=== PATIENT | male | born 1990 | race Caucasian/White ===

== ENCOUNTER 2020-12-12 09:01 | Emergency (ER) | payer OTHER, SELFPAY ==
--- NOTE | 2020-12-13 13:21 | RAD ---
XR Pelvis AP STANDARD History: Foreign object Comparison: None. Findings: No radiopaque foreign object is appreciated. Can't deformities both femoral head/neck junct ions. Obturator rings are intact. Impression: No radiopaque foreign object appreciated.
== END 2020-12-12 10:23 ==
LOC: ERS 09:01
DX: T18.5XXA Foreign body in anus and rectum, initial encounter (principal); F17.210 Nicotine dependence, cigarettes, uncomplicated
CPT/HCPCS: 72170

== ENCOUNTER 2022-09-18 11:00 | Inpatient (IN) | payer SELFPAY ==
[2022-09-18] MEDS ORDERED: Ondansetron PF 4 MG/2 ML Vial ONE (11:01)
[2022-09-18] MEDS ORDERED: Midazolam HCl 5 mg/ml Vial ONE (11:06)
[2022-09-18] MEDS ORDERED: Lorazepam 2 MG/ML VIAL ONE (11:58)
[2022-09-18 12:04] LABS: #Lymphocytes 1.1 thou/uL (1.20-3.40); #Monocytes 1.5 thou/uL (0.11-0.59); #Neutrophils 11.1 thou/uL (1.40-6.50); %Basophils 0.1 % (0.0-1.0); %Eosinophils 0.1 % (0.0-10.0); %Lymphocytes 8.1 % (21.0-51.0); %Monocytes 11.2 % (0.0-10.0); %Neutrophils 80.5 % (42.0-75.0); Hemoglobin 16.3 g/dL (14.0-18.0); Mean Corpuscular HGB CONC 32.6 g/dL (32.0-36.0); Mean Corpuscular Volume 98.3 fL (78.0-98.0); Mean Platelet Volume 7.4 fL (7.4-10.4); Platelet Count 277 thou/uL (130-400); RBC Distribution Width 12.2 % (11.5-14.5); White Blood Cell (WBC) Count 13.7 thou/uL (4.8-10.8)
[2022-09-18 12:19] LABS: Acetaminophen Less than 10.0 mcg/mL (10.0-30.0); Alcohol Less than 10 mg/dL (Less than 10); CK (CPK) 1660 U/L (30-200); Salicylate Less than 8.0 mg/dL (15.0-30.0)
[2022-09-18 12:20] LABS: ALT (SGPT) 17 U/L (8-55); AST (SGOT) 57 U/L (5-34); Albumin 4.3 g/dL (3.5-5.0); Alkaline Phosphatase 73 U/L (40-110); Anion Gap 17 mmol/L (10-20); BUN (Urea Nitrogen) 21 mg/dL (8.9-20.6); Bilirubin, Total 0.9 mg/dL (0.2-1.2); Calc. Creatinine Clearance 0 mL/min (70-130); Carbon Dioxide 22 mmol/L (22-29); Chloride 110 mmol/L (98-107); Estimated GFR 65; Globulin 3.1 g/dL (2.4-3.5); Glucose 99 mg/dL (70-105); Potassium 3.8 mmol/L (3.5-5.1); Protein, Total 7.4 g/dL (6.0-8.3); Sodium 145 mmol/L (136-145)
[2022-09-18 12:54] LABS: CKMB 13.3 ng/mL (0-6.6)
[2022-09-18 13:02] LABS: Amphetamine Detected (NotDetected); Barbiturates Screen Not Detected (NotDetected); Benzodiazepine Screen Not Detected (NotDetected); Cocaine Metabolite Screen Not Detected (NotDetected); Methadone Not Detected (NotDetected); Methamphetamine Detected (NotDetected); Opiate Screen Not Detected (NotDetected); Oxycodone Screen Not Detected (NotDetected); Phencyclidine (PCP) Not Detected (NotDetected); THC/Cannabinoid Screen Detected (NotDetected); Tricyclic Screen Not Detected (NotDetected)
[2022-09-18 13:03] LABS: Bilirubin 1+ (Negative); Blood, Urine 1+ (Negative); Calcium Oxalate Crystals Rare HPF (None Seen); Clarity Turbid (Clear); Glucose, Urine (Dipstick) Normal (Negative); Ketone, Urine Trace mg/dL (Negative); Leukocyte 250 Leu/uL (Negative); Nitrite Negative (Negative); Protein, Urine (Dipstick) 200 mg/dL (Neg-Trace); Squamous Epithelial 0-3 HPF (0-3); WBC/HPF Greater than 50 HPF (0-3); pH, Urine 7.5 (5.0-9.0)
[2022-09-18 13:13] LABS: Bacteria/HPF 1+ HPF (None Seen); Sperm/HPF 4+ HPF (None Seen)
[2022-09-18] MEDS ORDERED: cefTRIAXone\\ROCEPHIN 2 GM VIAL ONE (14:18)
[2022-09-18] MEDS ORDERED: Bisacodyl 5 MG TAB PO PRN (15:10)
[2022-09-18] MEDS ORDERED: Senokot S 8.6-50 MG TAB PO PRN (15:10)
[2022-09-18] MEDS ORDERED: Ondansetron PF 4 MG/2 ML Vial IVP PRN (15:10)
[2022-09-18] MEDS ORDERED: Acetaminophen 650 MG Suppository PR PRN (15:10)
[2022-09-18] MEDS ORDERED: Calcium Carbonate 500 MG ChewTAB PO PRN (15:10)
[2022-09-18] MEDS ORDERED: Acetaminophen 325 MG TAB PO PRN (15:10)
[2022-09-18] MEDS ORDERED: Electrolyte Replacement Protocol 1 EACH FS SCH (15:15)
[2022-09-18] MEDS ORDERED: Lorazepam 2 MG/ML VIAL SLOW IVP PRN (15:15)
[2022-09-18] MEDS ORDERED: hydrALAZINE 20 MG/ML VIAL SLOW IVP PRN (15:20)
[2022-09-18] MEDS ORDERED: Folic Acid 1 MG TAB PO SCH (16:15)
[2022-09-18] MEDS ORDERED: Multivit, Therapeutic 1 TAB PO SCH (16:15)
[2022-09-18] MEDS ORDERED: Folic Acid 1 MG TAB ONE (16:20)
[2022-09-18] MEDS: Sodium Chloride 0.9% 1,000 ML IV SCH ×2 (16:35→23:17)
[2022-09-18] MEDS: Thiamine HCl 200 MG/2 ML VIAL SLOW IVP SCH (16:43)
[2022-09-18 18:48] VITALS: BMI 24.1
[2022-09-18] MEDS ORDERED: Diazepam 10 MG/2 ML SYRINGE IVP PRN (19:25)
[2022-09-18] MEDS ORDERED: DOBUTamine 500 mg/250 ml 250 ML ONE (19:33)
[2022-09-18] MEDS: Famotidine/PF 20 mg/2ml Vial SLOW IVP SCH (19:54)
[2022-09-18 21:31] LABS: Chlam.trachomatis by PCR,Urine Not Detected (NotDetected)
[2022-09-18] MEDS: Diazepam 10 MG/2 ML SYRINGE IVP PRN (23:17)
[2022-09-19 04:13] LABS: #Eosinphils 0.1 thou/uL (0.0-0.7); %Basophils 0.3 % (0.0-1.0); %Eosinophils 0.7 % (0.0-10.0); %Lymphocytes 37.5 % (21.0-51.0); %Neutrophils 49.5 % (42.0-75.0); Hemoglobin 14.5 g/dL (14.0-18.0); Mean Corpuscular HGB CONC 32.7 g/dL (32.0-36.0); Mean Corpuscular Hemoglobin 32.5 pg (27.0-31.0); Mean Corpuscular Volume 99.4 fl (78.0-98.0); Mean Platelet Volume 7.6 fL (7.4-10.4); Platelet Count 184 thou/uL (130-400); RBC Distribution Width 12.4 % (11.5-14.5); Red Blood Cell (RBC) Count 4.47 mill/uL (4.70-6.10); White Blood Cell (WBC) Count 8.1 thou/uL (4.8-10.8)
[2022-09-19] MEDS: Diazepam 10 MG/2 ML SYRINGE IVP PRN (04:21)
[2022-09-19 04:45] LABS: ALT (SGPT) 17 U/L (8-55); AST (SGOT) 109 U/L (5-34); Albumin 3.6 g/dL (3.5-5.0); Alkaline Phosphatase 60 U/L (40-110); Anion Gap 13 mmol/L (10-20); BUN (Urea Nitrogen) 17 mg/dL (8.9-20.6); Bilirubin, Total 1.2 mg/dL (0.2-1.2); Calc. Creatinine Clearance 152 mL/min (70-130); Calcium 8.4 mg/dL (7.8-10.44); Carbon Dioxide 21 mmol/L (22-29); Chloride 110 mmol/L (98-107); Estimated GFR 116; Globulin 2.7 g/dL (2.4-3.5); Glucose 74 mg/dL (70-105); Potassium 3.7 mmol/L (3.5-5.1); Protein, Total 6.3 g/dL (6.0-8.3); Sodium 140 mmol/L (136-145)
[2022-09-19 04:58] LABS: CK (CPK) 4735 U/L (30-200)
[2022-09-19] MEDS ORDERED: Magnesium 2 GM/50 ML(in water) 2 GM in Premix Bag 1 BAG IVPB SCH (08:00)
[2022-09-19] MEDS: Sodium Chloride 0.9% 1,000 ML IV SCH (08:58)
[2022-09-19] MEDS: Multivit, Therapeutic 1 TAB PO SCH (09:00)
[2022-09-19] MEDS ORDERED: FLU VACC QS2022-23(6MOS UP)/PF 60 MCG/0.5 ML SYRINGE IM ONE (09:00)
[2022-09-19] MEDS: Famotidine/PF 20 mg/2ml Vial SLOW IVP SCH ×2 (09:00→20:33)
[2022-09-19] MEDS: Folic Acid 1 MG TAB PO SCH (09:00)
[2022-09-19] MEDS: Lactated Ringer's 1,000 ML IV SCH ×3 (10:56→20:33)
[2022-09-19] MEDS ORDERED: Lorazepam 2 MG/ML VIAL SLOW IVP PRN (12:25)
[2022-09-19] MEDS: Thiamine HCl 200 MG/2 ML VIAL SLOW IVP SCH (15:46)
[2022-09-19] MEDS: cefTRIAXone\\ROCEPHIN 1 GM in Sodium Chloride 0.9% 100 ML IVPB SCH (15:46)
[2022-09-20] MEDS: Lorazepam 1 MG TAB PO PRN ×2 (00:22→14:33)
[2022-09-20] MEDS: Lactated Ringer's 1,000 ML IV SCH ×2 (03:53→11:35)
[2022-09-20 06:41] LABS: #Basophils 0.1 thou/uL (0.0-0.2); #Eosinphils 0.1 thou/uL (0.0-0.7); #Lymphocytes 2.3 thou/uL (1.20-3.40); #Monocytes 0.7 thou/uL (0.11-0.59); #Neutrophils 3.8 thou/uL (1.40-6.50); %Basophils 1.3 % (0.0-1.0); %Lymphocytes 33.1 % (21.0-51.0); %Monocytes 9.4 % (0.0-10.0); %Neutrophils 54.2 % (42.0-75.0); Hemoglobin 14.9 g/dL (14.0-18.0); Mean Corpuscular Hemoglobin 32.7 pg (27.0-31.0); Mean Corpuscular Volume 99.1 fl (78.0-98.0); Mean Platelet Volume 7.6 fL (7.4-10.4); Platelet Count 190 thou/uL (130-400); RBC Distribution Width 11.9 % (11.5-14.5); Red Blood Cell (RBC) Count 4.56 mill/uL (4.70-6.10); White Blood Cell (WBC) Count 6.9 thou/uL (4.8-10.8)
[2022-09-20 07:16] LABS: ALT (SGPT) 18 U/L (8-55); AST (SGOT) 109 U/L (5-34); Albumin 3.5 g/dL (3.5-5.0); Alkaline Phosphatase 58 U/L (40-110); Anion Gap 13 mmol/L (10-20); BUN (Urea Nitrogen) 6 mg/dL (8.9-20.6); CK (CPK) 2741 U/L (30-200); Calc. Creatinine Clearance 165 mL/min (70-130); Calcium 8.3 mg/dL (7.8-10.44); Carbon Dioxide 26 mmol/L (22-29); Chloride 105 mmol/L (98-107); Estimated GFR 119; Globulin 2.6 g/dL (2.4-3.5); Glucose 84 mg/dL (70-105); Magnesium 1.9 mg/dL (1.6-2.6); Phosphorus 3.2 mg/dL (2.3-4.7); Potassium 3.6 mmol/L (3.5-5.1); Protein, Total 6.1 g/dL (6.0-8.3); Sodium 140 mmol/L (136-145)
[2022-09-20] MEDS ORDERED: Magnesium 2 GM/50 ML(in water) 2 GM in Premix Bag 1 BAG IVPB SCH (08:00)
[2022-09-20] MEDS: Multivit, Therapeutic 1 TAB PO SCH (08:17)
[2022-09-20] MEDS: Folic Acid 1 MG TAB PO SCH (08:17)
[2022-09-20] MEDS: Famotidine/PF 20 mg/2ml Vial SLOW IVP SCH (08:17)
[2022-09-20 12:11] VITALS: BP 119/68; TEMP 97.6
[2022-09-20] MEDS: cefTRIAXone\\ROCEPHIN 1 GM in Sodium Chloride 0.9% 100 ML IVPB SCH (15:44)
[2022-09-20] MEDS: Thiamine HCl 200 MG/2 ML VIAL SLOW IVP SCH (15:44)
[2022-09-21] MEDS ORDERED: Thiamine 100 MG TAB PO SCH (09:00)
== END 2022-09-20 15:53 | disposition left against medical advice (07) | DRG 557 ==
LOC: ERS 11:00 → SUATTDRO 11:00 → ERHOLD 15:20 → CCU 18:24 → IMCU/EMU 09-19 07:09 → T4-B 09-19 20:20
PROVIDERS: ADMIT Hospitalist; ATTEND Hospitalist
DX: M62.82 Rhabdomyolysis (principal); G92.8 Other toxic encephalopathy; F15.121 Other stimulant abuse with intoxication delirium; N17.9 Acute kidney failure, unspecified; N39.0 Urinary tract infection, site not specified; I24.8 Other forms of acute ischemic heart disease; F20.0 Paranoid schizophrenia; F12.121 Cannabis abuse with intoxication delirium; Z20.822 Contact with and (suspected) exposure to COVID-19; E86.0 Dehydration; Z53.29 Procedure and treatment not carried out because of patient's decision for other reasons
CPT/HCPCS: 36415; 70450; 71045; 80053; 80306; 80307; 81003; 81015; 82550; 82553; 83735; 84100; 84443; 84484; 85025; 87491; 87591; 93005; J0696; J2060; J2250; J2405; J3360; J3411; J3475; J3490; J7050; J7120; S0028; U0003; U0005

== ENCOUNTER 2022-10-10 09:14 | Observation (INO) | payer SELFPAY ==
[2022-10-10 09:46] LABS: #Basophils 0.1 thou/uL (0.0-0.2); #Lymphocytes 1.7 thou/uL (1.20-3.40); #Monocytes 0.9 thou/uL (0.11-0.59); #Neutrophils 6.8 thou/uL (1.40-6.50); %Basophils 0.8 % (0.0-1.0); %Eosinophils 0.2 % (0.0-10.0); %Lymphocytes 18.3 % (21.0-51.0); %Monocytes 9.1 % (0.0-10.0); %Neutrophils 71.7 % (42.0-75.0); Mean Corpuscular HGB CONC 33.7 g/dL (32.0-36.0); Mean Corpuscular Hemoglobin 32.6 pg (27.0-31.0); Mean Corpuscular Volume 96.8 fl (78.0-98.0); Mean Platelet Volume 8.1 fL (7.4-10.4); Platelet Count 283 10x3/uL (130-400); RBC Distribution Width 11.9 % (11.5-14.5); White Blood Cell (WBC) Count 9.5 10x3/uL (4.8-10.8)
[2022-10-10] MEDS ORDERED: Dextrose 50% Abboject 50 ML SYRINGE ONE (09:53)
[2022-10-10 10:04] LABS: INR-International Normal Ratio 0.9; PTT 28.2 sec (22.9-36.1)
[2022-10-10 10:07] LABS: ALT (SGPT) 25 U/L (8-55); AST (SGOT) 119 U/L (5-34); Acetaminophen Less than 10.0 mcg/mL (10.0-30.0); Albumin 5.1 g/dL (3.5-5.0); Alcohol Less than 10 mg/dL (Less than 10); Alkaline Phosphatase 69 U/L (40-110); Anion Gap 25 mmol/L (10-20); BUN (Urea Nitrogen) 22 mg/dL (8.9-20.6); Bilirubin, Total 2.2 mg/dL (0.2-1.2); CK (CPK) 3556 U/L (30-200); Calc. Creatinine Clearance 0 mL/min (70-130); Carbon Dioxide 17 mmol/L (22-29); Chloride 98 mmol/L (98-107); Estimated GFR 73; Globulin 3.8 g/dL (2.4-3.5); Glucose 78 mg/dL (70-105); Lipase 41 U/L (8-78); Potassium 4.1 mmol/L (3.5-5.1); Protein, Total 8.9 g/dL (6.0-8.3); Salicylate Less than 8.0 mg/dL (15.0-30.0); Sodium 136 mmol/L (136-145)
[2022-10-10] MEDS ORDERED: Cefepime 2 GM VIAL ONE (10:47)
[2022-10-10] MEDS ORDERED: Boostrix 0.5 ML (Tdap) VIAL (>/=7 yrs of age) ONE (10:47)
[2022-10-10] MEDS ORDERED: Sodium Chloride 0.9% 100 ML ONE (10:47)
[2022-10-10] MEDS ORDERED: Vancomycin 1.5 GRAM/300 ML BAG 1.5 GM in Premix Bag 1 BAG IVPB SCH (11:00)
[2022-10-10 11:24] LABS: Bacteria/HPF None Seen HPF (None Seen); Bilirubin Negative (Negative); Blood, Urine Negative (Negative); Clarity Clear (Clear); Glucose, Urine (Dipstick) 50 mg/dL (Negative); Ketone, Urine Greater than 150 mg/dL (Negative); Leukocyte 250 Leu/uL (Negative); Nitrite Negative (Negative); Protein, Urine (Dipstick) 30 mg/dL (Neg-Trace); RBC/HPF 0-3 HPF (0-3); Specific Gravity, Urine 1.021 (1.002-1.036); Squamous Epithelial 0-3 HPF (0-3); Urobilinogen Normal mg/dL (Less than 2); WBC/HPF Greater than 50 HPF (0-3)
[2022-10-10 11:28] LABS: Amphetamine Detected (NotDetected); Barbiturates Screen Not Detected (NotDetected); Benzodiazepine Screen Not Detected (NotDetected); Cocaine Metabolite Screen Not Detected (NotDetected); Methadone Not Detected (NotDetected); Methamphetamine Detected (NotDetected); Opiate Screen Not Detected (NotDetected); Oxycodone Screen Not Detected (NotDetected); Phencyclidine (PCP) Not Detected (NotDetected); THC/Cannabinoid Screen Detected (NotDetected); Tricyclic Screen Not Detected (NotDetected)
[2022-10-10 12:41] LABS: Lactic Acid 1.6 mmol/L (0.5-2.2)
[2022-10-10] MEDS ORDERED: Ziprasidone 20 MG VIAL ONE (13:04)
[2022-10-10] MEDS ORDERED: Water For Inject, Bacteriostat 30 ML ONE (13:05)
[2022-10-10] MEDS ORDERED: Lactated Ringer's 1,000 ML IV SCH (13:15)
[2022-10-10] MEDS ORDERED: Lorazepam 1 MG TAB PO PRN (13:15)
[2022-10-10] MEDS ORDERED: Lorazepam 2 MG/ML VIAL IM PRN (13:15)
[2022-10-10] MEDS ORDERED: Electrolyte Replacement Protocol 1 EACH FS SCH (13:15)
[2022-10-10] MEDS ORDERED: Ondansetron ODT 4 MG TAB PO PRN (13:15)
[2022-10-10] MEDS ORDERED: Acetaminophen 325 MG TAB PO PRN (13:18)
[2022-10-10] MEDS ORDERED: Ziprasidone 20 MG VIAL IM SCH (13:45)
[2022-10-10] MEDS ORDERED: Thiamine HCl 200 MG/2 ML VIAL SLOW IVP SCH (14:00)
[2022-10-10] MEDS ORDERED: Lorazepam 1 MG TAB PO SCH (14:00)
[2022-10-10] MEDS ORDERED: Vancomycin 1 GM in Premix Bag 1 BAG IVPB SCH (21:00)
[2022-10-11] MEDS ORDERED: Multivit, Therapeutic 1 TAB PO SCH (09:00)
[2022-10-11] MEDS ORDERED: Folic Acid 1 MG TAB PO SCH (09:00)
[2022-10-11] MEDS ORDERED: Lorazepam 1 MG TAB PO PRN (13:16)
[2022-10-12] MEDS ORDERED: Lorazepam 1 MG TAB PO PRN (13:16)
[2022-10-12] MEDS ORDERED: Lorazepam 0.5 MG TAB PO SCH (14:00)
[2022-10-13] MEDS ORDERED: Lorazepam 0.5 MG TAB PO PRN (13:16)
[2022-10-13] MEDS ORDERED: Thiamine 100 MG TAB PO SCH (14:00)
== END 2022-10-10 13:39 | disposition left against medical advice (07) ==
LOC: ERS 09:14 → ERHOLD 11:34
PROVIDERS: ADMIT Student in an Organized Health Care Education/Training Program; ATTEND Student in an Organized Health Care Education/Training Program
DX: N17.9 Acute kidney failure, unspecified (principal); F15.10 Other stimulant abuse, uncomplicated; M62.82 Rhabdomyolysis; E86.0 Dehydration; F20.0 Paranoid schizophrenia; L03.113 Cellulitis of right upper limb; F12.10 Cannabis abuse, uncomplicated; F17.210 Nicotine dependence, cigarettes, uncomplicated; Z53.29 Procedure and treatment not carried out because of patient's decision for other reasons
CPT/HCPCS: 36415; 36416; 70450; 71045; 80053; 80306; 80307; 81003; 81015; 82550; 83605; 83690; 84443; 84484; 85025; 85610; 85730; 87040; 87086; 90715; 93005; 94760; G0378; J0692; J3370; J3486; J3490; J7999

== ENCOUNTER 2022-11-05 23:42 | Emergency (ER) | payer SELFPAY ==
[2022-11-06 00:07] LABS: #Basophils 0.1 thou/uL (0.0-0.2); #Lymphocytes 4.1 thou/uL (1.20-3.40); #Monocytes 1.5 thou/uL (0.11-0.59); #Neutrophils 6.4 thou/uL (1.40-6.50); %Basophils 0.5 % (0.0-1.0); %Eosinophils 0.4 % (0.0-10.0); %Lymphocytes 34.1 % (21.0-51.0); %Monocytes 11.9 % (0.0-10.0); %Neutrophils 53.1 % (42.0-75.0); Hemoglobin 17.6 g/dL (14.0-18.0); Mean Corpuscular HGB CONC 34.3 g/dL (32.0-36.0); Mean Corpuscular Hemoglobin 32.6 pg (27.0-31.0); Mean Corpuscular Volume 95.2 fl (78.0-98.0); Mean Platelet Volume 7.4 fL (7.4-10.4); Platelet Count 307 10x3/uL (130-400); RBC Distribution Width 11.9 % (11.5-14.5); Red Blood Cell (RBC) Count 5.38 mill/uL (4.70-6.10); White Blood Cell (WBC) Count 12.1 10x3/uL (4.8-10.8)
[2022-11-06 00:27] LABS: ALT (SGPT) 15 U/L (8-55); AST (SGOT) 53 U/L (5-34); Albumin 4.8 g/dL (3.5-5.0); Alkaline Phosphatase 63 U/L (40-110); Anion Gap 17 mmol/L (10-20); BUN (Urea Nitrogen) 17 mg/dL (8.9-20.6); Bilirubin, Total 2.2 mg/dL (0.2-1.2); Calc. Creatinine Clearance 0 mL/min (70-130); Calcium 9.9 mg/dL (7.8-10.44); Carbon Dioxide 21 mmol/L (22-29); Chloride 107 mmol/L (98-107); Estimated GFR 83; Globulin 3.2 g/dL (2.4-3.5); Glucose 91 mg/dL (70-105); Magnesium 2.2 mg/dL (1.6-2.6); Potassium 4.1 mmol/L (3.5-5.1); Sodium 141 mmol/L (136-145)
[2022-11-06 00:32] LABS: CKMB 6.2 ng/mL (0-6.6)
[2022-11-06 02:48] LABS: Amphetamine Detected (NotDetected); Barbiturates Screen Not Detected (NotDetected); Benzodiazepine Screen Not Detected (NotDetected); Cocaine Metabolite Screen Not Detected (NotDetected); Methadone Not Detected (NotDetected); Methamphetamine Detected (NotDetected); Opiate Screen Not Detected (NotDetected); Oxycodone Screen Not Detected (NotDetected); Phencyclidine (PCP) Not Detected (NotDetected); THC/Cannabinoid Screen Detected (NotDetected); Tricyclic Screen Not Detected (NotDetected)
== END 2022-11-06 05:44 | disposition home or self-care (01) ==
LOC: ERS 23:42
DX: F15.90 Other stimulant use, unspecified, uncomplicated (principal); R74.8 Abnormal levels of other serum enzymes; F17.210 Nicotine dependence, cigarettes, uncomplicated
CPT/HCPCS: 36415; 80053; 80306; 82550; 82553; 83735; 85025; 93005

== ENCOUNTER 2022-11-08 08:44 | Emergency (ER) | payer SELFPAY ==
[2022-11-08 09:38] LABS: #Basophils 0.1 thou/uL (0.0-0.2); #Eosinphils 0.1 thou/uL (0.0-0.7); #Lymphocytes 1.9 thou/uL (1.20-3.40); #Monocytes 0.4 thou/uL (0.11-0.59); %Basophils 1.2 % (0.0-1.0); %Eosinophils 1.8 % (0.0-10.0); %Lymphocytes 34.9 % (21.0-51.0); %Monocytes 7.5 % (0.0-10.0); %Neutrophils 54.6 % (42.0-75.0); Hemoglobin 15.9 g/dL (14.0-18.0); Mean Corpuscular HGB CONC 33.7 g/dL (32.0-36.0); Mean Corpuscular Hemoglobin 32.5 pg (27.0-31.0); Mean Corpuscular Volume 96.5 fl (78.0-98.0); Mean Platelet Volume 7.1 fL (7.4-10.4); Platelet Count 250 10x3/uL (130-400); RBC Distribution Width 11.7 % (11.5-14.5); Red Blood Cell (RBC) Count 4.89 mill/uL (4.70-6.10); White Blood Cell (WBC) Count 5.5 10x3/uL (4.8-10.8)
[2022-11-08 09:58] LABS: Acetaminophen Less than 10.0 mcg/mL (10.0-30.0); Alcohol Less than 10 mg/dL (Less than 10); Salicylate Less than 8.0 mg/dL (15.0-30.0)
[2022-11-08 10:01] LABS: ALT (SGPT) 14 U/L (8-55); AST (SGOT) 50 U/L (5-34); Albumin 4.2 g/dL (3.5-5.0); Alkaline Phosphatase 55 U/L (40-110); Anion Gap 12 mmol/L (10-20); BUN (Urea Nitrogen) 8 mg/dL (8.9-20.6); Bilirubin, Total 1.1 mg/dL (0.2-1.2); Calc. Creatinine Clearance 0 mL/min (70-130); Calcium 8.7 mg/dL (7.8-10.44); Carbon Dioxide 24 mmol/L (22-29); Chloride 104 mmol/L (98-107); Estimated GFR 113; Globulin 2.8 g/dL (2.4-3.5); Glucose 101 mg/dL (70-105); Magnesium 2.1 mg/dL (1.6-2.6); Potassium 3.6 mmol/L (3.5-5.1); Sodium 136 mmol/L (136-145)
[2022-11-08 12:40] LABS: Bilirubin Negative (Negative); Blood, Urine Negative (Negative); Clarity Clear (Clear); Glucose, Urine (Dipstick) Normal (Negative); Ketone, Urine Negative (Negative); Leukocyte Negative Leu/uL (Negative); Nitrite Negative (Negative); Protein, Urine (Dipstick) Negative (Neg-Trace); Specific Gravity, Urine 1.012 (1.002-1.036); Urobilinogen Normal mg/dL (Less than 2)
[2022-11-08 12:50] LABS: Amphetamine Detected (NotDetected); Barbiturates Screen Not Detected (NotDetected); Benzodiazepine Screen Not Detected (NotDetected); Cocaine Metabolite Screen Not Detected (NotDetected); Methadone Not Detected (NotDetected); Methamphetamine Detected (NotDetected); Opiate Screen Not Detected (NotDetected); Oxycodone Screen Not Detected (NotDetected); Phencyclidine (PCP) Not Detected (NotDetected); THC/Cannabinoid Screen Detected (NotDetected); Tricyclic Screen Not Detected (NotDetected)
== END 2022-11-08 16:42 | disposition home or self-care (01) ==
LOC: ERS 08:44
DX: F15.129 Other stimulant abuse with intoxication, unspecified (principal); F17.210 Nicotine dependence, cigarettes, uncomplicated
CPT/HCPCS: 36415; 80053; 80306; 80307; 81003; 83735; 84443; 85025; 93005

== ENCOUNTER 2022-12-17 10:57 | Observation (INO) | payer OTHER ==
[2022-12-17] MEDS ORDERED: Oxymetazoline HCl 0.05% (30 ML BOT) ONE (12:50)
[2022-12-17] MEDS ORDERED: Lidocaine 2% 6 ML SYR ONE (12:50)
[2022-12-17] MEDS ORDERED: Ondansetron ODT 4 MG TAB PO PRN (13:03)
[2022-12-17] MEDS ORDERED: Ondansetron PF 4 MG/2 ML Vial IVP PRN (13:03)
[2022-12-17] MEDS ORDERED: Dextrose 50% Abboject 50 ML SYRINGE SLOW IVP PRN (13:03)
[2022-12-17] MEDS ORDERED: Morphine 2 MG/ML VIAL SLOW IVP PRN (13:03)
[2022-12-17] MEDS ORDERED: Dextrose 5% in Water 1,000 ML IV PRN (13:03)
[2022-12-17] MEDS ORDERED: traMADol HCl 50 MG TAB PO PRN (13:06)
[2022-12-17] MEDS ORDERED: Lactated Ringer's 1,000 ML IV SCH (13:15)
[2022-12-17 13:31] LABS: HIV (1/2) Antibody/Antigen Non-Reactive (NonReactive); HIV 1/2 INDEX 0.13 S/CO (<1.00); Hep C IgG Ab Non-Reactive (NonReactive); Hep C Index 0.04 S/CO (0-0.79)
[2022-12-17] MEDS ORDERED: CEFAZOLIN 1 GM VIAL SLOW IVP ONE (13:32)
[2022-12-17] MEDS ORDERED: CEFAZOLIN 2 GM VIAL ONE (13:38)
[2022-12-17 13:39] LABS: HBSAB Concentration 20.37 mIU/mL; Hep B Surf AB Reactive (NonReactive)
[2022-12-17] MEDS ORDERED: Sodium Chloride 0.9% 100 ML ONE (13:39)
[2022-12-17] MEDS ORDERED: Chlorhexidine Gluconate 15 ML UDCUP SSP ONE (13:40)
[2022-12-17] MEDS ORDERED: Lidocaine 1% (PF) 30 ML VIAL ONE (13:40)
[2022-12-17] MEDS ORDERED: EPINEPHrine 1 MG/ML AMP ONE (13:40)
[2022-12-17] MEDS ORDERED: CEFAZOLIN 2 GM in Sodium Chloride 0.9% 100 ML IVPB SCH (13:45)
[2022-12-17] MEDS ORDERED: HYDROmorphone 2 MG/ML VIAL ONE (13:55)
[2022-12-17] MEDS ORDERED: Dexmedetomidine 200 MCG/2 ML VIAL ONE (13:55)
[2022-12-17] MEDS ORDERED: PROPOFOL 200 MG/20 ML VIAL ONE (14:03)
[2022-12-17] MEDS ORDERED: Dexamethasone 20 MG/5 ML VIAL ONE (14:03)
[2022-12-17] MEDS ORDERED: Ondansetron PF 4 MG/2 ML Vial ONE (14:03)
[2022-12-17] MEDS ORDERED: NEOSTIGMINE 3 MG/3 ML SYR 3 MG/3 ML SYRINGE ONE (14:03)
[2022-12-17] MEDS ORDERED: Glycopyrrolate 0.2 MG/ML 5 ML SYRINGE ONE (14:03)
[2022-12-17] MEDS ORDERED: Lidocaine 1% PF 5 ML VIAL ONE (14:03)
[2022-12-17] MEDS ORDERED: Rocuronium Bromide 10 MG/ML (10ML VIAL) ONE (14:03)
[2022-12-17] MEDS ORDERED: Bacitracin Zinc Ointment 30 gm TUBE ONE (14:45)
[2022-12-17] MEDS ORDERED: Promethazine HCl 25 MG/ML VIAL IM PRN (15:14)
[2022-12-17] MEDS ORDERED: Meperidine HCl/PF 25 MG/ML VIAL SLOW IVP PRN (15:14)
[2022-12-17] MEDS ORDERED: Ondansetron HCl/PF 4 MG/2 ML Vial IVP PRN (15:14)
[2022-12-17] MEDS ORDERED: HYDROmorphone 2 MG/ML VIAL SLOW IVP PRN (15:14)
[2022-12-17] MEDS ORDERED: PACU-Morphine 4MG/ML VIAL SLOW IVP PRN (15:14)
[2022-12-17] MEDS ORDERED: Fentanyl 100 MCG/2 ML VIAL ONE (15:37)
[2022-12-17] MEDS ORDERED: OLANZapine 10 MG VIAL IM SCH (16:15)
[2022-12-17] MEDS: traMADol HCl 50 MG TAB PO SCH (17:34)
[2022-12-17] MEDS: Acetaminophen 500 MG TAB PO SCH ×2 (17:35→23:43)
[2022-12-17] MEDS: Gabapentin 300 MG CAP PO SCH ×2 (17:36→23:42)
[2022-12-17] MEDS: Ibuprofen 200 MG TAB PO SCH ×2 (17:36→23:43)
[2022-12-17 18:07] LABS: #Monocytes 0.2 thou/uL (0.11-0.59); #Neutrophils 9.4 thou/uL (1.40-6.50); %Basophils 0.2 % (0.0-1.0); %Eosinophils 0.2 % (0.0-10.0); %Monocytes 2.1 % (0.0-10.0); %Neutrophils 88.5 % (42.0-75.0); Hemoglobin 16.5 g/dL (14.0-18.0); Mean Corpuscular HGB CONC 33.8 g/dL (32.0-36.0); Mean Corpuscular Hemoglobin 32.7 pg (27.0-31.0); Mean Corpuscular Volume 96.6 fl (78.0-98.0); Mean Platelet Volume 7.6 fL (7.4-10.4); Platelet Count 259 10x3/uL (130-400); RBC Distribution Width 12.1 % (11.5-14.5); Red Blood Cell (RBC) Count 5.05 mill/uL (4.70-6.10); White Blood Cell (WBC) Count 10.6 10x3/uL (4.8-10.8)
[2022-12-17 18:29] LABS: ALT (SGPT) 8 U/L (8-55); AST (SGOT) 29 U/L (5-34); Albumin 4.2 g/dL (3.5-5.0); Alkaline Phosphatase 61 U/L (40-110); Anion Gap 15 mmol/L (10-20); BUN (Urea Nitrogen) 12 mg/dL (8.9-20.6); Bilirubin, Total 0.8 mg/dL (0.2-1.2); CK (CPK) 225 U/L (30-200); Calc. Creatinine Clearance 0 mL/min (70-130); Carbon Dioxide 24 mmol/L (22-29); Chloride 105 mmol/L (98-107); Estimated GFR 113; Globulin 2.8 g/dL (2.4-3.5); Glucose 106 mg/dL (70-105); Potassium 4.5 mmol/L (3.5-5.1); Sodium 139 mmol/L (136-145)
[2022-12-17] MEDS: Famotidine 20 MG TAB PO SCH (23:42)
[2022-12-18] MEDS: traMADol HCl 50 MG TAB PO SCH ×3 (01:14→10:50)
[2022-12-18] MEDS: Acetaminophen 500 MG TAB PO SCH ×2 (06:32→10:49)
[2022-12-18] MEDS: Ibuprofen 200 MG TAB PO SCH ×3 (06:33→15:17)
[2022-12-18] MEDS ORDERED: TETANUS, DIPHTHERIA TOX,ADULT (TDVAX) 0.5 ML VIAL IM ONE (09:00)
[2022-12-18] MEDS: Gabapentin 300 MG CAP PO SCH ×2 (10:46→15:16)
[2022-12-18] MEDS: Famotidine 20 MG TAB PO SCH (10:46)
[2022-12-18 11:49] VITALS: TEMP 97.7
[2022-12-18 16:12] VITALS: BP 118/69
[2022-12-18] MEDS ORDERED: Chlorhexidine Gluconate 15 ML UDCUP SSP SCH (21:00)
[2022-12-18] MEDS ORDERED: Bacitracin 1 PK TOP SCH (21:00)
[2022-12-18] MEDS ORDERED: Amoxicillin/Potassium Clav 875 MG TAB PO SCH (21:00)
== END 2022-12-18 16:45 ==
LOC: ERS 10:57 → SURG B 13:10 → SDC 13:10 → SURG B 17:15 → EEVIPCON 17:15
PROVIDERS: ADMIT Dentist Oral and Maxillofacial Surgery; ATTEND Dentist Oral and Maxillofacial Surgery
PROC: 0HQ1XZZ Repair Face Skin, External Approach (ICD-10-PCS; principal; 2022-12-17)
PROC: 0NBR0ZZ Excision of Maxilla, Open Approach (ICD-10-PCS; 2022-12-17)
PROC: 0CDWXZ1 Extraction of Upper Tooth, Multiple, External Approach (ICD-10-PCS; 2022-12-17)
DX: S02.42XB Fracture of alveolus of maxilla, initial encounter for open fracture (principal); S02.5XXA Fracture of tooth (traumatic), initial encounter for closed fracture; S01.82XA Laceration with foreign body of other part of head, initial encounter; G89.11 Acute pain due to trauma; F15.10 Other stimulant abuse, uncomplicated; F17.200 Nicotine dependence, unspecified, uncomplicated; F20.0 Paranoid schizophrenia; W22.09XA Striking against other stationary object, initial encounter; Y92.240 Courthouse as the place of occurrence of the external cause
CPT/HCPCS: 36415; 70450; 70486; 80053; 82550; 85025; 90714; 96372; 96374; G0378; J0171; J1100; J1170; J2001; J2272; J2405; J2704; J3010; J3490; J7120

== ENCOUNTER 2023-01-04 18:15 | Emergency (ER) | payer OTHER | END 2023-01-04 19:05 | disposition left against medical advice (07) | LOC: ERS 18:15 | DX: Z53.21 Procedure and treatment not carried out due to patient leaving prior to being seen by health care provider (principal) | CPT/HCPCS: 99283 ==

== ENCOUNTER 2023-02-18 18:52 | Emergency (ER) | payer BC, OTHER ==
[2023-02-18 20:37] LABS: #Eosinphils 0.1 thou/uL (0.0-0.7); #Monocytes 0.5 thou/uL (0.11-0.59); #Neutrophils 3.4 thou/uL (1.40-6.50); %Basophils 0.6 % (0.0-1.0); %Lymphocytes 33.8 % (21.0-51.0); %Monocytes 8.5 % (0.0-10.0); %Neutrophils 56.1 % (42.0-75.0); Hemoglobin 17.1 g/dL (14.0-18.0); Mean Corpuscular HGB CONC 35.5 g/dL (32.0-36.0); Mean Corpuscular Hemoglobin 34.5 pg (27.0-31.0); Mean Corpuscular Volume 97.3 fl (78.0-98.0); Mean Platelet Volume 7.2 fL (7.4-10.4); Platelet Count 276 10x3/uL (130-400); RBC Distribution Width 11.4 % (11.5-14.5); Red Blood Cell (RBC) Count 4.94 mill/uL (4.70-6.10)
[2023-02-18 21:00] LABS: Acetaminophen Less than 10.0 mcg/mL (10.0-30.0); Alcohol Less than 10 mg/dL (Less than 10); Salicylate Less than 8.0 mg/dL (15.0-30.0)
[2023-02-18 21:01] LABS: ALT (SGPT) 11 U/L (8-55); AST (SGOT) 35 U/L (5-34); Albumin 4.3 g/dL (3.5-5.0); Alkaline Phosphatase 73 U/L (40-110); Anion Gap 17 mmol/L (10-20); BUN (Urea Nitrogen) 13 mg/dL (8.9-20.6); Bilirubin, Total 0.9 mg/dL (0.2-1.2); CK (CPK) 145 U/L (30-200); Calc. Creatinine Clearance 0 mL/min (70-130); Calcium 9.2 mg/dL (7.8-10.44); Carbon Dioxide 20 mmol/L (22-29); Chloride 106 mmol/L (98-107); Estimated GFR 118; Globulin 3.3 g/dL (2.4-3.5); Glucose 84 mg/dL (70-105); Potassium 3.6 mmol/L (3.5-5.1); Protein, Total 7.6 g/dL (6.0-8.3); Sodium 139 mmol/L (136-145)
[2023-02-18 21:19] LABS: Bacteria/HPF None Seen HPF (None Seen); Bilirubin Negative (Negative); Blood, Urine Negative (Negative); Clarity Clear (Clear); Glucose, Urine (Dipstick) Normal (Negative); Ketone, Urine 20 mg/dL (Negative); Leukocyte 75 Leu/uL (Negative); Nitrite Negative (Negative); Protein, Urine (Dipstick) 50 mg/dL (Neg-Trace); RBC/HPF 0-3 HPF (0-3); Squamous Epithelial 0-3 HPF (0-3); Urobilinogen Greater than 12 mg/dL (Less than 2); WBC/HPF 21-50 HPF (0-3); pH, Urine 7.5 (5.0-9.0)
[2023-02-18 21:20] LABS: Amphetamine Detected (NotDetected); Barbiturates Screen Not Detected (NotDetected); Benzodiazepine Screen Not Detected (NotDetected); Cocaine Metabolite Screen Not Detected (NotDetected); Methadone Not Detected (NotDetected); Methamphetamine Detected (NotDetected); Opiate Screen Not Detected (NotDetected); Oxycodone Screen Not Detected (NotDetected); Phencyclidine (PCP) Not Detected (NotDetected); THC/Cannabinoid Screen Detected (NotDetected); Tricyclic Screen Not Detected (NotDetected)
[2023-02-18] MEDS ORDERED: traZODone HCl 50 MG TAB ONE (22:17)
[2023-02-19] MEDS ORDERED: traZODone HCl 50 MG TAB ONE (19:59)
== END 2023-02-20 08:57 | disposition home or self-care (01) ==
LOC: ERS 18:52
DX: R45.851 Suicidal ideations (principal); F19.10 Other psychoactive substance abuse, uncomplicated; F20.9 Schizophrenia, unspecified
CPT/HCPCS: 36415; 80053; 80306; 80307; 81003; 81015; 82550; 84443; 85025; 93005